=== PATIENT | male | born 2000 ===

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

== ENCOUNTER 2020-11-03 23:02 | Emergency (ER) | payer OTHER ==
[~2020-11-03] VITALS: Ht 175.3 cm; Wt 77.1 kg
[2020-11-03] MEDS ORDERED: AZITHROMYCIN250 MG (23:09)
[2020-11-03] MEDS ORDERED: ALBUTEROL1.25 MG/3 (23:09)
[2020-11-03] MEDS ORDERED: BUDESONIDE0.25 MG/2 (23:09)
[2020-11-04] MEDS ORDERED: ZITHROMAX500 MG PO (03:50)
[2020-11-04] MEDS ORDERED: MEDROLPACK PO (03:51)
== END 2020-11-04 04:06 | disposition home or self-care (01) ==
LOC: ER 23:02
DX: U07.1 COVID-19 (principal); R51.9 Headache, unspecified; B34.9 Viral infection, unspecified

== ENCOUNTER 2021-08-05 11:05 | Emergency (ER) | payer OTHER ==
[~2021-08-05] VITALS: Ht 177.8 cm; Wt 79.4 kg
[~2021-08-05 11:05] MED LIST: ALBUTEROL1.25 MG/3; AZITHROMYCIN250 MG; BUDESONIDE0.25 MG/2; MEDROLPACK PO; ZITHROMAX500 MG PO
== END 2021-08-05 11:52 | disposition home or self-care (01) ==
LOC: ER 11:05
DX: S61.052A Open bite of left thumb without damage to nail, initial encounter (principal); W54.0XXA Bitten by dog, initial encounter; Y93.89 Activity, other specified; Y92.89 Other specified places as the place of occurrence of the external cause; Y99.8 Other external cause status